=== PATIENT | male | born 1965 | race Caucasian/White ===

== ENCOUNTER 2020-02-16 14:23 | Inpatient (IN) | payer SELFPAY ==
[~2020-02-16] VITALS: Ht 180.3 cm; Wt 97.5 kg
[2020-02-16 14:50] VITALS: BP 95/67
--- NOTE | 2020-02-16 14:55 | NUR ---
ED Nurse Note: Pt ambulated to ED d/t LT leg swelling radiating to RT arm noted with scattered red spots, and abdominal pain on the lower region going on for 2 days. Pt is A&Ox4, VSS, on RA, afebrile on triage. Pt denies any shortnes of breath nor diff of breathing. Placed on bed, hooked to front desk monitor. per pt, he was hospitalized 3 wks ago d/t kidney failure and started taking Xarelto/Gabapentin. Patient does not know why he is taking those meds.
--- NOTE | 2020-02-16 14:57 | NUR ---
ED Nurse Note: ERMD at bedside.
--- NOTE | 2020-02-16 15:10 | Emergency Room Report ---
History of Present Illness General Chief Complaint: General Complaint Source: Patient Present Illness HPI 54-year-old male with history of chronic kidney disease, on Xarelto "but I have no idea why" here with left lower extremity swelling. Patient says that he was admitted to an outside hospital 1 month ago "for kidney failure." Patient says that while he was in the hospital he noticed left lower extremity swelling but does not believe he ever had an ultrasound to rule out DVT. He says "my kidneys recover on their own" and never needed dialysis. He says however that he was then prescribed Xarelto and is completely unaware of why he was prescribed this medication. He says he has been taking it every day over the past month. Says he noticed left lower extremity swelling gradually come down over the past several weeks, but today when he came out of the shower he said that he noticed that the upper extremity was once again very swollen and is not painful. Denies fevers, chills, chest pain, palpitation, shortness of breath, back pain, abdominal pain, nausea, vomiting, diarrhea, dysuria, hematuria, palpitations. 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 COVID-19 Screening: Negative COVID-19 COVID-19 Testing Source: throat and INSULATION BOARD CALENDER OPERATOR Nursing Documentation-[facility] Past Medical History: No History, Except For Physical Exam Vital Signs Date Time Temp Pulse Resp B/P (MAP) Pulse Ox O2 Delivery O2 Flow Rate FiO2 02/16/20 14:47 97.7 83 14 95/67 (76) 99 Room Air Sp02 EP Interpretation: reviewed, normal General Appearance: no apparent distress, alert, GCS 15, non-toxic Head: normocephalic, atraumatic Eyes: bilateral eye normal inspection, bilateral eye PERRL ENT: hearing grossly normal, normal pharynx, no angioedema, normal voice Neck: full range of motion, supple/symm/no masses Respiratory: chest non-tender, lungs clear, normal breath sounds, speaking full sentences Cardiovascular #1: regular rate, rhythm, no edema Cardiovascular #2: 2+ carotid (R), 2+ carotid (L), 2+ radial (R), 2+ radial (L) , 2+ dorsalis pedis (R), 2+ dorsalis pedis (L) Gastrointestinal: normal bowel sounds, non tender, soft, non-distended, no guarding, no rebound Rectal: deferred Genitourinary: normal inspection, no CVA tenderness Musculoskeletal: back normal, normal range of motion, gait/station normal, other - Diffuse edematous swelling of the left lower extremity. Positive Homans sign left lower extremity. Diffuse small petechiae of the left lower extremity distal to the left knee Neurologic: alert, motor strength/tone normal, oriented x3, sensory intact, responsive, speech normal Psychiatric: judgement/insight normal, memory normal, mood/affect normal, no suicidal/homicidal ideation Lymphatic: no adenopathy Medical Decision Making ER Course Chest x-ray: No infiltrate/effusion. Mediastinum within normal limits EKG: NSR, no ischemia, intervals WNL. No ectopy Rhythm strip: patient monitored for arrhythmias - no malignant dysrhythmias, runs of PVCs, nor pauses noted Laboratory Tests Test 02/16/20 15:25 White Blood Count 9.7 K/UL (4.8-10.8) Red Blood Count 3.82 M/UL (4.70-6.10) L Hemoglobin 13.1 G/DL (14.2-18.0) L Hematocrit 38.7 % (42.0-52.0) L Mean Corpuscular Volume 101 FL (80-99) H Mean Corpuscular Hemoglobin 34.3 PG (27.0-31.0) H Mean Corpuscular Hemoglobin Concent 33.9 G/DL (32.0-36.0) Red Cell Distribution Width 11.4 % (11.6-14.8) L Platelet Count 256 K/UL (150-450) Mean Platelet Volume 7.0 FL (6.5-10.1) Neutrophils (%) (Auto) 59.7 % (45.0-75.0) Lymphocytes (%) (Auto) 29.9 % (20.0-45.0) Monocytes (%) (Auto) 6.0 % (1.0-10.0) Eosinophils (%) (Auto) 3.0 % (0.0-3.0) Basophils (%) (Auto) 1.4 % (0.0-2.0) D-Dimer 1.08 mg/L FEU (0.00-0.49) H Sodium Level 138 MMOL/L (136-145) Potassium Level 3.9 MMOL/L (3.5-5.1) Chloride Level 106 MMOL/L (98-107) Carbon Dioxide Level 26 MMOL/L (21-32) Anion Gap 6 mmol/L (5-15) Blood Urea Nitrogen 13 mg/dL (7-18) Creatinine 1.1 MG/DL (0.55-1.30) Estimated Glomerular Filtration Rate > 60 mL/min (>60) Glucose Level 132 MG/DL (74-106) H Calcium Level 9.2 MG/DL (8.5-10.1) Total Bilirubin 0.5 MG/DL (0.2-1.0) Aspartate Amino Transferase (AST) 16 U/L (15-37) Alanine Aminotransferase (ALT) 20 U/L (12-78) Alkaline Phosphatase 63 U/L (46-116) Troponin I 0.007 ng/mL (0.000-0.056) Total Protein 7.3 G/DL (6.4-8.2) Albumin 3.4 G/DL (3.4-5.0) Globulin 3.9 g/dL Albumin/Globulin Ratio 0.9 (1.0-2.7) L 54-year-old male here with left lower extremity swelling. The patient says that he was admitted to an outside hospital approximately 1 month ago "for kidney failure" and he was given a prescription for Xarelto and he says that he is unaware as to why he is taking it. Chest x-ray unremarkable. EKG was normal. CBC and CMP normal. Patient had a lower extremity duplex ultrasound performed which revealed a large occlusive DVT of the left lower extremity. Patient was given 1 mg/kg of subcutaneous therapeutic Lovenox. He was hemodynamically stable and not complaining of any chest pain or shortness of breath or palpitations. Low likelihood for pulmonary embolism at this time. Patient mated to [facility]. Last Vital Signs Date Time Temp Pulse Resp B/P (MAP) Pulse Ox O2 Delivery O2 Flow Rate FiO2 02/16/20 14:47 97.7 83 14 95/67 (76) 99 Room Air Vicente Amaya M.D. Feb 16, 2020 15:10
[2020-02-16] MEDS ORDERED: Aspirin Baby 81mg ORAL ONE (15:15)
--- NOTE | 2020-02-16 15:33 | NUR ---
ED Nurse Note: US tech at bedside.
[2020-02-16 15:36] LABS: BASOPHILS % (AUTO) 1.4 % (0.0-2.0); HEMATOCRIT 38.7 % (42.0-52.0); HEMOGLOBIN 13.1 G/DL (14.2-18.0); LYMPHOCYTES % (AUTO) 29.9 % (20.0-45.0); MEAN CORPUSCULAR VOLUME 101 FL (80-99); NEUTROPHILS % (AUTO) 59.7 % (45.0-75.0); PLATELET COUNT 256 K/UL (150-450); RED BLOOD COUNT 3.82 M/UL (4.70-6.10); RED CELL DISTRIBUTION WIDTH 11.4 % (11.6-14.8); WHITE BLOOD COUNT 9.7 K/UL (4.8-10.8)
[2020-02-16 15:52] LABS: ANION GAP 6 mmol/L (5-15); BLOOD UREA NITROGEN 13 mg/dL (7-18); CALCIUM 9.2 MG/DL (8.5-10.1); CARBON DIOXIDE 26 MMOL/L (21-32); CHLORIDE 106 MMOL/L (98-107); CREATININE 1.1 MG/DL (0.55-1.30); POTASSIUM 3.9 MMOL/L (3.5-5.1); SODIUM 138 MMOL/L (136-145)
[2020-02-16 15:55] LABS: ALANINE AMINOTRANSFERASE 20 U/L (12-78); ALBUMIN 3.4 G/DL (3.4-5.0); ALBUMIN/GLOBULIN RATIO 0.9 (1.0-2.7); ALKALINE PHOSPHATASE 63 U/L (46-116); ASPARTATE AMINO TRANSFERASE 16 U/L (15-37); BILIRUBIN,TOTAL 0.5 MG/DL (0.2-1.0)
--- NOTE | 2020-02-16 16:08 | NUR ---
ED Nurse Note: x-ray done.
[2020-02-16] MEDS ORDERED: Enoxaparin 80mg Inj SUBQ ONE (16:11)
[2020-02-16] MEDS ORDERED: Enoxaparin 80mg Inj SUBQ SCH (16:15)
--- NOTE | 2020-02-16 16:26 | Diagnostic Imaging Report ---
EXAM: US Duplex Left Lower Extremity Veins CLINICAL HISTORY: [place] TECHNIQUE: Real-time duplex ultrasound scan of the left lower extremity veins integrating B-mode two-dimensional vascular structure, Doppler spectral analysis, color flow Doppler imaging and compression. COMPARISON: None FINDINGS: Deep veins: Occlusive thrombus in the left femoral vein, popliteal vein, and calf veins. Superficial veins: Unremarkable. No thrombus in the visualized great saphenous vein. Soft tissues: No acute findings. No popliteal cyst. Lymph nodes: Nonspecific prominent left inguinal lymph nodes. IMPRESSION: Occlusive thrombus in the left femoral vein, popliteal vein, and calf veins. <MYCVCSECTION> Communications: 02/16/20 16:27 Call Doctor Regarding Acute DVT, called Monique ROBLEDO on 02/15 16:28 (-07:00)
[2020-02-16] MEDS ORDERED: LORazepam 1mg tab ORAL ONE (16:45)
--- NOTE | 2020-02-16 17:22 | Diagnostic Imaging Report ---
Indication: Chest Technique: One view of the chest Comparison: none Findings: Lungs and pleural spaces are clear. Heart size is normal. Impression: No acute process
[2020-02-16] MEDS ORDERED: XARELTO1 EACH PO (17:46)
[2020-02-16] MEDS ORDERED: ACETAMINOPHEN325 M1 ORAL (17:46)
[2020-02-16] MEDS ORDERED: NEURONTIN300 MG ORAL (17:46)
[2020-02-16] MEDS ORDERED: TRAMADOL HCL100 M2 ORAL (17:46)
[2020-02-16] MEDS ORDERED: LO-DOSE ASPIRIN81 MG ORAL (17:46)
[2020-02-16] MEDS ORDERED: ALPRAZOLAM0.5 MG PO (17:46)
--- NOTE | 2020-02-16 17:56 | NUR ---
ED Nurse Note: report given to charles knight in med surg unit for continuity of care.
[2020-02-16] MEDS ORDERED: Enoxaparin 100mg Inj SUBQ SCH (18:00)
--- NOTE | 2020-02-16 18:38 | NUR ---
NURSE NOTES: Report received from JAYCEE Bustamante. Patient admitted from the ER. Patient is AAOx4, ambulatory, on room air. IV site patent and intact, Vital signs stable, able to make needs known. Breathing is even and unlabored, not in any distress noted at this time. Patient has left leg edema, pain that radiates from left leg to left shoulder and arm. Belongings checked and signed with patient. RN instructed patient to use call light before ambulating if felt dizzy or weak. bed is locked and placed in lowest position. call light within reach. Will continue to monitor
[2020-02-16 18:55] VITALS: BP 100/62
--- NOTE | 2020-02-16 19:18 | NUR ---
NURSE NOTES: Report given to JAYCEE Villagomez
[2020-02-16 20:00] VITALS: BP 96/50
[2020-02-16] MEDS ORDERED: HYDROcodone/Acetamin 7.5/325 tab ORAL PRN (20:00)
[2020-02-16] MEDS: ALPRAZolam 0.5mg tab ORAL PRN (20:39)
[2020-02-16] MEDS: HYDROcodone/Acetamin 7.5/325 tab ORAL PRN (20:40)
--- NOTE | 2020-02-16 21:36 | History and Physical ---
History of Present Illness General Reason for Hospitalization: General Complaint Present Illness HPI This is a 54yo M who has a recent past medical history for acute DVT in LLE which was diagnosed at [facility] on 01/12/2020 and he now reports here for LLE swelling. No known past medical history then above. He states his overall leg swelling has improved significantly overall but still has tingling and weakness in that leg. He has been compliant on his xarelto. He has no FHx for hypercoagulation or DVT/PE. He has never been diagnosed to this prior. No recent surgery but was bed bound for 2-3 days prior with back pain. US doppler shows a sigficant complete occlusion of femoral, pop and calf vessel. Otherwise patient is not on a diuretic, is not using a compression stocking or lifting his left at night. Overall his foot is warm with adequate distal pulse and no pain with moving his foot. . Allergies: Coded Allergies: No Known Allergies (Unverified , 02/16/20) COVID-19 Screening Contact w/high risk pt: No Experienced COVID-19 symptoms?: No Medication History Scheduled Alprazolam* (Xanax*), 0.5 MG PO TID, (Reported) Aspirin (Lo-Dose Aspirin Ec), 81 MG ORAL DAILY, (Reported) Gabapentin (Neurontin), 300 MG ORAL BEDTIME, (Reported) Scheduled PRN Acetaminophen* (Acetaminophen 325MG Tablet*), 325 MG ORAL Q4H PRN for For Pain, (Reported) Miscellaneous Medications Rivaroxaban (Xarelto), 1 EACH PO, (Reported) Discontinued Medications Tramadol Hcl (Tramadol Hcl), 100 MG ORAL DAILY PRN for For Pain, (Reported) Discontinued Reason: MD discontinued med Patient History Healthcare decision maker Resuscitation status Advanced Directive on File Review of Systems Musculoskeletal: Reports: back pain Neurological: Reports: numbness, paresthesia Hematologic/Lymphatic: Reports: blood clots Physical Exam General Appearance: WD/WN, no apparent distress Lines, tubes and drains: peripheral HEENT: normocephalic, atraumatic Neck: non-tender, supple Respiratory/Chest: lungs clear, no respiratory distress Cardiovascular/Chest: normal peripheral pulses, normal rate, regular rhythm Abdomen: normal bowel sounds, non tender Extremities: normal range of motion, non-tender, trace edema Skin Exam: normal pigmentation, warm/dry Neurologic: glove stitcher II-XII grossly normal Last 24 Hour Vital Signs Date Time Temp Pulse Resp B/P (MAP) Pulse Ox O2 Delivery O2 Flow Rate FiO2 02/16/20 21:12 98.7 02/16/20 20:57 Room Air 02/16/20 20:08 Room Air 02/16/20 20:00 100.0 60 16 96/50 (65) 95 02/16/20 18:55 98.7 65 18 100/62 (75) 97 02/16/20 18:25 98.6 72 17 100/81 99 Room Air 02/16/20 14:50 97.7 14 95/67 99 Room Air 02/16/20 14:50 83 14 Room Air 02/16/20 14:47 97.7 83 14 95/67 (76) 99 Room Air Laboratory Tests Test 02/16/20 15:25 White Blood Count 9.7 K/UL (4.8-10.8) Red Blood Count 3.82 M/UL (4.70-6.10) L Hemoglobin 13.1 G/DL (14.2-18.0) L Hematocrit 38.7 % (42.0-52.0) L Mean Corpuscular Volume 101 FL (80-99) H Mean Corpuscular Hemoglobin 34.3 PG (27.0-31.0) H Mean Corpuscular Hemoglobin Concent 33.9 G/DL (32.0-36.0) Red Cell Distribution Width 11.4 % (11.6-14.8) L Platelet Count 256 K/UL (150-450) Mean Platelet Volume 7.0 FL (6.5-10.1) Neutrophils (%) (Auto) 59.7 % (45.0-75.0) Lymphocytes (%) (Auto) 29.9 % (20.0-45.0) Monocytes (%) (Auto) 6.0 % (1.0-10.0) Eosinophils (%) (Auto) 3.0 % (0.0-3.0) Basophils (%) (Auto) 1.4 % (0.0-2.0) D-Dimer 1.08 mg/L FEU (0.00-0.49) H Sodium Level 138 MMOL/L (136-145) Potassium Level 3.9 MMOL/L (3.5-5.1) Chloride Level 106 MMOL/L (98-107) Carbon Dioxide Level 26 MMOL/L (21-32) Anion Gap 6 mmol/L (5-15) Blood Urea Nitrogen 13 mg/dL (7-18) Creatinine 1.1 MG/DL (0.55-1.30) Estimat Glomerular Filtration Rate > 60 mL/min (>60) Glucose Level 132 MG/DL (74-106) H Calcium Level 9.2 MG/DL (8.5-10.1) Total Bilirubin 0.5 MG/DL (0.2-1.0) Aspartate Amino Transf (AST/SGOT) 16 U/L (15-37) Alanine Aminotransferase (ALT/SGPT) 20 U/L (12-78) Alkaline Phosphatase 63 U/L (46-116) Troponin I 0.007 ng/mL (0.000-0.056) Total Protein 7.3 G/DL (6.4-8.2) Albumin 3.4 G/DL (3.4-5.0) Globulin 3.9 g/dL Albumin/Globulin Ratio 0.9 (1.0-2.7) L Height (Feet): 5 Height (Inches): 11.00 Weight (Pounds): 215 Medications Current Medications Medications (Trade) Dose Ordered Sig/Sharon Route PRN Reason Start Time Stop Time Status Last Admin Dose Admin Acetaminophen (Tylenol) 325 mg Q4H PRN ORAL Mild Pain (Pain Scale 1-3) 02/16/20 20:15 03/17/20 19:59 Acetaminophen/ Hydrocodone Bitart ([place] 7.5/325) 1 tab Q4H PRN ORAL For Pain 4-10 02/16/20 20:00 02/23/20 19:59 02/16/20 20:40 Alprazolam (Xanax) 0.5 mg TIDPRN PRN ORAL For Anxiety 02/16/20 20:00 02/23/20 19:59 02/16/20 20:39 Aspirin (Ecotrin) 81 mg DAILY ORAL 02/17/20 09:00 04/02/20 08:59 Dextrose (Dextrose 50%) 25 ml Q30M PRN IV Hypoglycemia 02/16/20 20:00 05/16/20 19:59 Dextrose (Dextrose 50%) 50 ml Q30M PRN IV Hypoglycemia 02/16/20 20:00 05/16/20 19:59 Famotidine (Pepcid) 40 mg DAILY ORAL 02/17/20 09:00 05/17/20 08:59 Gabapentin (Neurontin) 300 mg BEDTIME ORAL 02/16/20 21:00 03/17/20 20:59 02/16/20 20:39 Ondansetron HCl (Zofran) 4 mg Q6H PRN IVP Nausea & Vomiting 02/16/20 20:00 03/17/20 19:59 Assessment/Plan Problem List: (1) DVT (deep venous thrombosis) Assessment & Plan: This was diagnosed on 01/12/2020 at OSH. US LLE: showes extensive DVT of fem, pop. and calf vein. There is no comparison. Overall patient, swelling has improved. Physical exam shows no ischemic picture. ORDERS - Continue with Xarelto as prescribed - Continue to use behavior techniques such as compression stocking/keeping leg raised when seating or sleeping. - Continue to ambulate as tolerated - Lasix 20mg PRN swelling Disposition: Likely tomorrow and follow up with PCP ICD Codes: I82.409 - Acute embolism and thrombosis of unspecified deep veins of unspecified lower extremity SNOMED: [id number] (2) Edema ICD Codes: R60.9 - Edema, unspecified SNOMED: [id number], [id number] Benja Mcghee D.O. Feb 16, 2020 21:36
[2020-02-17] VITALS: BP 91/47
[2020-02-17 04:00] VITALS: BP 112/70
[2020-02-17] MEDS: HYDROcodone/Acetamin 7.5/325 tab ORAL PRN (05:23)
--- NOTE | 2020-02-17 07:02 | NUR ---
HAND-OFF: Report given to Chrissy Malagon RN.
--- NOTE | 2020-02-17 08:00 | NUR ---
NURSE NOTES: Patient awake and alert and oriented,respirations unlabored.Patient sitting up in bed and eating breakfast.Left leg elevated on pillow ,no complaint at this time.Call light within reach.
[2020-02-17] MEDS ORDERED: Aspirin EC 81mg tab ORAL SCH (09:00)
[2020-02-17] MEDS ORDERED: Xarelto 10mg tab ORAL SCH (09:00)
[2020-02-17 09:18] LABS: BASOPHILS % (AUTO) 1.1 % (0.0-2.0); EOSINOPHILS % (AUTO) 3.6 % (0.0-3.0); HEMATOCRIT 40.3 % (42.0-52.0); LYMPHOCYTES % (AUTO) 34.7 % (20.0-45.0); MEAN CORPUSCULAR VOLUME 102 FL (80-99); MONOCYTES % (AUTO) 6.1 % (1.0-10.0); NEUTROPHILS % (AUTO) 54.5 % (45.0-75.0); PLATELET COUNT 248 K/UL (150-450); RED BLOOD COUNT 3.96 M/UL (4.70-6.10); RED CELL DISTRIBUTION WIDTH 10.9 % (11.6-14.8); WHITE BLOOD COUNT 6.8 K/UL (4.8-10.8)
[2020-02-17 09:33] LABS: ANION GAP 7 mmol/L (5-15); BLOOD UREA NITROGEN 15 mg/dL (7-18); CALCIUM 8.8 MG/DL (8.5-10.1); CARBON DIOXIDE 28 MMOL/L (21-32); CHLORIDE 105 MMOL/L (98-107); POTASSIUM 4.2 MMOL/L (3.5-5.1); SODIUM 140 MMOL/L (136-145)
[2020-02-17] MEDS: ALPRAZolam 0.5mg tab ORAL PRN (10:21)
[2020-02-17 10:25] VITALS: BP 106/65
--- NOTE | 2020-02-17 11:59 | NUR ---
CASE MANAGEMENT:INITIAL REVIEW 54 YR OLD MALE WALKED IN FROM HOME (RESIDENTIAL FACILITY) CC;GENERAL COMPLAINT SI;DEEP VEIN THROMBOSIS 100.0 83 18 95/67 95% ON RA BG 132 D-DIMER 1.08 VENOUS DUPLEX ~ Occlusive thrombus in the left femoral vein, popliteal vein, and calf veins. CXR ~ NO ACUTE PROCESS IS;ASA PO X1 ATIVAN PO X1 LOVENOX SUBQ ADMITTED TO MED SURG 02/17/20 @ 0954 MED SURG STATUS DCP;FROM [facility]
[2020-02-17 12:27] VITALS: BP 104/68
--- NOTE | 2020-02-17 12:27 | Discharge Instructions ---
Discharge Instructions Discharge Instructions Call MD/Return to Hospital if: any sign of SOB, or chest pain Diet: cardiac 2 GM Na, low fat Activity: light activity For Congestive Heart Failure Reminder Report to your physician any weight gain of 5 pounds or more in one week. Yusuf Oneal M.D. Feb 17, 2020 12:27
--- NOTE | 2020-02-17 12:36 | Discharge Summary ---
Discharge Summary Hospital Course Date of Admission Feb 16, 2020 at 16:35 Date of Discharge 02/17/20 Admitting Diagnosis DVT HPI This is a 54yo M who has a recent past medical history for acute DVT in LLE which was diagnosed at [facility] on 01/12/2020 and he now reports here for LLE swelling. No known past medical history then above. He states his overall leg swelling has improved significantly overall but still has tingling and weakness in that leg. He has been compliant on his xarelto. He has no FHx for hypercoagulation or DVT/PE. He has never been diagnosed to this prior. No recent surgery but was bed bound for 2-3 days prior with back pain. US doppler shows a sigficant complete occlusion of femoral, pop and calf vessel. Otherwise patient is not on a diuretic, is not using a compression stocking or lifting his left at night. Overall his foot is warm with adequate distal pulse and no pain with moving his foot. Consultations Hematology Dr. Salas Hospital Course Patients swelling improved overnight with elevation. It is likely the old DVT that hasn't resolved yet. He has not been taking his Xarelto with biggest meal of the day. I counseled him to do so from now on. He is eager to leave and have a smoke. I counseled him on smoking cessation. He was given information in had with vacular surgeon that removes large DVTs. He is being set up with new PCP. ED precautions given told him to return with any SOB or chest pain. I spent 38 minutes on this discharge with 20 minutes of care coordination and counseling. I also counseled on smoking cessation for 15 minutes with pharmacotherapy offered but denied. Discussed with hematology Dr. Salas. discussed with RN and pharmacy. Discharge Medications Continued Medications: Acetaminophen* (Acetaminophen 325MG Tablet*) 325 Mg Tablet 325 MG ORAL Q4H PRN for For Pain, TAB Alprazolam* (Xanax*) 0.5 Mg Tablet 0.5 MG PO TID for anxiety, TAB Aspirin (Lo-Dose Aspirin Ec) 81 Mg Tablet. 81 MG ORAL DAILY for cardiac, #30 TAB 0 Refills Gabapentin (Neurontin) 300 Mg Capsule 300 MG ORAL BEDTIME for polyneuropathy, #7 CAP 0 Refills Rivaroxaban (Xarelto) 1 Each Tab.ds.pk 1 EACH PO for DVT, PACK Discharge Condition Upon Discharge: stable Discharge Vital Signs Last Vital Signs Date Time Temp Pulse Resp B/P (MAP) Pulse Ox O2 Delivery O2 Flow Rate FiO2 02/17/20 12:27 98.1 66 18 104/68 (80) 95 02/16/20 20:57 Room Air Discharge Disposition Patient was discharged to home Discharge Diagnoses: (1) DVT (deep venous thrombosis) (2) Edema (3) Encounter for generalized patient complaints Discharge Instructions Discharge Instructions Call MD/Return to Hospital if: any sign of SOB, or chest pain Activity: light activity Yusuf Oneal M.D. Feb 17, 2020 12:36
--- NOTE | 2020-02-17 15:46 | NUR ---
NURSE NOTES: Patient discharge with discharge instructions given,patient has his personal belongings.IV removed ID hospital band removed.Patient aware of follow up visit with DR Richmond .patient was given information on finding Facility for follow up visits. Patient accompany downstairs patient ride is here.
== END 2020-02-17 15:48 | disposition home or self-care (01) | DRG 301 ==
LOC: EMR 15:05 → 4E 16:35 → EDBEDREQ 18:11
DX: I82.402 Acute embolism and thrombosis of unspecified deep veins of left lower extremity (principal); Z79.82 Long term (current) use of aspirin; Z79.01 Long term (current) use of anticoagulants
CPT/HCPCS: 36415; 71045; 80048; 80053; 84484; 85025; 85379; 93005; 93971; 99285

== ENCOUNTER 2020-03-11 13:56 | Emergency (ER) | payer SELFPAY ==
[~2020-03-11] VITALS: Ht 180.3 cm; Wt 97.5 kg
[~2020-03-11 13:56] MED LIST: ACETAMINOPHEN325 M1 ORAL; ALPRAZOLAM0.5 MG PO; LO-DOSE ASPIRIN81 MG ORAL; NEURONTIN300 MG ORAL; TRAMADOL HCL100 M2 ORAL; XARELTO1 EACH PO
[2020-03-11 14:21] VITALS: BP 118/76
--- NOTE | 2020-03-11 14:22 | Emergency Room Report ---
History of Present Illness General Chief Complaint: General Complaint Source: Patient Present Illness HPI Disclaimer: Please note that this report is being documented using manetchON technology. This can lead to erroneous entry secondary to incorrect interpretation by the dictating instrument. HPI: 54-year-old male history of DVT on aspirin and Xarelto, substance abuse, extensive tobacco use history presents for evaluation of DVT. Patient was previously diagnosed with a DVT on 02/15 in this hospital and discharged on Xarelto. He has been compliant with his medications. He reports some worsening swelling and intermittent chest discomfort. He reports a tightness around his chest that is worse by bending and twisting motion, coughing and sneezing. He denies shortness of breath, chest pressure, palpitations, syncope , lightheadedness, fever, chills, productive cough, abdominal pain, nausea, vomiting, diarrhea. His new PMD, Dr. Guevara, was concerned of possible PE. He is also being considered for endovascular thrombectomy of the left lower extremity DVT. Denies new fall or injury. PMH: DVT, substance abuse PSH: Reviewed Allergies: Denied Social Hx: Extensive tobacco use, substance abuse history Allergies: Coded Allergies: No Known Allergies (Unverified , 02/16/20) COVID-19 Screening Contact w/high risk pt: No Experienced COVID-19 symptoms?: No COVID-19 Testing performed SOUND TECHNICIAN: No Nursing Documentation-PMH Hx Hypertension: Yes Review of Systems All Other Systems: negative except mentioned in HPI Physical Exam Vital Signs Date Time Temp Pulse Resp B/P (MAP) Pulse Ox O2 Delivery O2 Flow Rate FiO2 03/11/20 14:02 98.4 82 20 118/76 (90) 98 Room Air General: Awake and alert, no acute distress HEENT: NC/AT. EOMI. Cardiovascular: RRR. S1 and S2 normal. No murmur appreciated Resp: Normal work of breathing. No cough, wheezing or crackles appreciated Abdomen: Abdomen is soft, nondistended. Nontender Skin: Intact. No abrasions, laceration or rash over the exposed skin MSK: Normal tone and bulk. Moving all extremities. Enlarged left lower extremity around the calf that is asymmetric compared to the right. Tender to palpation over the posterior aspect. Neuro: Awake and alert. Mentating appropriately. Sensation intact of the dermatomes lower extremity. Medical Decision Making Diagnostic Impression: Primary Impression: DVT (deep venous thrombosis) Additional Impression: Pulmonary nodule ER Course Is a 54-year-old male previously diagnosed DVT presenting for evaluation of possible PE and worsening clot burden. Patient is been compliant with Xarelto. Will repeat labs, order CTA, repeat ultrasound. Patient is saturating 98% on room air no respiratory distress and is hemodynamically stable. 1600: Ultrasound again demonstrates a DVT from the mid frontal vein to the popliteal vein. This consistent with prior exam. CTA did not find evidence of pulmonary embolism but did note a pulmonary nodule that will require routine follow-up on an outpatient basis. A copy of these reports have been given to the patient along with copy of his labs today which returned within normal limits. He will follow-up with his PMD to discuss further treatment options of his chronic DVT. Copies of his reports, labs, EKG were faxed to his PMD office. He is instructed to continue Xarelto and aspirin. No other issues reported by patient today. Stable for outpatient follow-up. Instructed to return to the ED with new or worsening symptoms. He understands and agrees with this treatment plan. Laboratory Tests Test 03/11/20 14:25 White Blood Count 8.8 K/UL (4.8-10.8) Red Blood Count 4.40 M/UL (4.70-6.10) L Hemoglobin 14.2 G/DL (14.2-18.0) Hematocrit 43.7 % (42.0-52.0) Mean Corpuscular Volume 99 FL (80-99) Mean Corpuscular Hemoglobin 32.3 PG (27.0-31.0) H Mean Corpuscular Hemoglobin Concent 32.5 G/DL (32.0-36.0) Red Cell Distribution Width 11.4 % (11.6-14.8) L Platelet Count 292 K/UL (150-450) Mean Platelet Volume 6.2 FL (6.5-10.1) L Neutrophils (%) (Auto) 51.1 % (45.0-75.0) Lymphocytes (%) (Auto) 36.2 % (20.0-45.0) Monocytes (%) (Auto) 6.3 % (1.0-10.0) Eosinophils (%) (Auto) 3.7 % (0.0-3.0) H Basophils (%) (Auto) 2.7 % (0.0-2.0) H Prothrombin Time 17.5 SEC (9.30-11.50) H Prothrombin Time INR 1.6 (0.9-1.1) H Activated Partial Thromboplast Time 34 SEC (23-33) H Sodium Level 141 MMOL/L (136-145) Potassium Level 4.4 MMOL/L (3.5-5.1) Chloride Level 102 MMOL/L (98-107) Carbon Dioxide Level 29 MMOL/L (21-32) Anion Gap 10 mmol/L (5-15) Blood Urea Nitrogen 9 mg/dL (7-18) Creatinine 0.9 MG/DL (0.55-1.30) Estimated Glomerular Filtration Rate > 60 mL/min (>60) Glucose Level 130 MG/DL (74-106) H Calcium Level 10.0 MG/DL (8.5-10.1) Troponin I 0.000 ng/mL (0.000-0.056) EKG Diagnostic Results EKG Time: 14:19 Rate: normal Rhythm: NSR ST Segments: no acute changes Other Impression Sinus rhythm, normal axis, normal intervals, no ST segment changes. Rhythm Strip Diag. Results Rhythm Strip Time: 14:19 EP Interpretation: yes Rate: 71 Rhythm: NSR, no PVC's, no ectopy CT/MRI/US Diagnostic Results CT/MRI/US Diagnostic Results : Impression Impression: Negative for acute pulmonary embolus or other acute thoracic pathology 3 mm subpleural nodule periphery of the right upper lobe. If there are no significant risk factors for lung carcinoma, no further follow-up necessary. Recommend 6-12 months follow-up CT scan if there are significant risk factors Dictated By: Bonifacio Quinones MD Electronically Signed By: Bonifacio Quinones MD Signed Date/Time 03/11/20 3111 CC: Danial Muller MD Last Vital Signs Date Time Temp Pulse Resp B/P (MAP) Pulse Ox O2 Delivery O2 Flow Rate FiO2 03/11/20 14:02 98.4 82 20 118/76 (90) 98 Room Air Disposition: HOME, SELF-CARE Condition: Stable Danial Muller MD Mar 11, 2020 14:22
[2020-03-11] MEDS ORDERED: Omnipaque 350 100ml vial INJ PRN (14:30)
[2020-03-11 14:48] LABS: BASOPHILS % (AUTO) 2.7 % (0.0-2.0); EOSINOPHILS % (AUTO) 3.7 % (0.0-3.0); HEMATOCRIT 43.7 % (42.0-52.0); HEMOGLOBIN 14.2 G/DL (14.2-18.0); LYMPHOCYTES % (AUTO) 36.2 % (20.0-45.0); MEAN CORPUSCULAR VOLUME 99 FL (80-99); MONOCYTES % (AUTO) 6.3 % (1.0-10.0); NEUTROPHILS % (AUTO) 51.1 % (45.0-75.0); PLATELET COUNT 292 K/UL (150-450); RED CELL DISTRIBUTION WIDTH 11.4 % (11.6-14.8); WHITE BLOOD COUNT 8.8 K/UL (4.8-10.8)
[2020-03-11 14:58] LABS: ANION GAP 10 mmol/L (5-15); BLOOD UREA NITROGEN 9 mg/dL (7-18); CARBON DIOXIDE 29 MMOL/L (21-32); CHLORIDE 102 MMOL/L (98-107); CREATININE 0.9 MG/DL (0.55-1.30); POTASSIUM 4.4 MMOL/L (3.5-5.1); SODIUM 141 MMOL/L (136-145)
[2020-03-11 14:59] LABS: INR 1.6 (0.9-1.1)
--- NOTE | 2020-03-11 15:59 | Diagnostic Imaging Report ---
ndication: Shortness of breath Technique: IV administration nonionic contrast. Spiral acquisitions obtained from the lung bases to the lung apices. Multiplanar and 3-D reconstructions were generated. Total dose length product 363 mGycm. CTDIvol(s) one, 35, 8 mGy. Dose reduction achieved using automated exposure control Comparison: none Findings: No intraluminal filling defects or other findings to suggest acute pulmonary embolus are demonstrated. Pulmonary arteries are well-opacified. Normal caliber pulmonary arteries. No evidence of right ventricular dilatation. No evidence of thoracic aortic aneurysm or dissection. The heart size is normal. No pericardial effusion. No mediastinal or hilar mass or adenopathy. The included thyroid is unremarkable. No axillary or chest wall mass or adenopathy demonstrated. 3 mm subpleural nodule is seen in the periphery of the right upper lobe laterally, image 14 series 6. Minimal dependent atelectasis is seen at the posterior left lung base. The lungs are clear otherwise-no infiltrates, effusions, masses, nodules, or congestion. The included upper abdominal anatomy is unremarkable. Impression: Negative for acute pulmonary embolus or other acute thoracic pathology 3 mm subpleural nodule periphery of the right upper lobe. If there are no significant risk factors for lung carcinoma, no further follow-up necessary. Recommend 6-12 months follow-up CT scan if there are significant risk factors The CT scanner at [facility] is accredited by the [employer] and the scans are performed using protocols designed to limit radiation exposure to as low as reasonably achievable to attain images of sufficient resolution adequate for diagnostic evaluation.
--- NOTE | 2020-03-11 16:07 | Diagnostic Imaging Report ---
Indication: Left leg edema Technique: Grayscale and duplex images of the left lower extremity veins Comparison: 02/16/2020 Findings: On the left, grayscale and duplex images demonstrate thrombus within the left femoral and popliteal veins. This results in noncompressibility and diminished flow. The calf veins are patent as are the common femoral vein. Findings are similar to those reported on the previous exam except that the previously reported calf vein thrombosis is not evident on the study.. Impression: Left popliteal and upstream femoral vein deep vein thrombosis, also noted on prior study of 02/16/2020. Note that previously demonstrated left calf vein thrombus has resolved.
[2020-03-11 16:15] VITALS: BP 120/74
[2020-03-11 16:16] VITALS: BP 118/76
== END 2020-03-11 16:16 | disposition home or self-care (01) ==
LOC: EMR 14:05
DX: R91.1 Solitary pulmonary nodule (principal); R60.0 Localized edema; I82.432 Acute embolism and thrombosis of left popliteal vein; I82.412 Acute embolism and thrombosis of left femoral vein; Z79.82 Long term (current) use of aspirin; Z79.01 Long term (current) use of anticoagulants; I10 Essential (primary) hypertension
CPT/HCPCS: 36415; 71275; 80048; 84484; 85025; 85610; 85730; 93005; 93971; 99284; Q9967